=== PATIENT | male | born 1970 | race Asian ===

== ENCOUNTER 2017-03-07 16:29 | Emergency (ER) | payer OTHER ==
[~2017-03-07] VITALS: Ht 180.3 cm; Wt 81.6 kg
== END 2017-03-07 17:53 | disposition home or self-care (01) ==
LOC: ED 16:29
DX: M54.12 Radiculopathy, cervical region (principal)
CPT/HCPCS: 96372; 99283; J1100; J1885

== ENCOUNTER 2019-05-27 16:08 | Emergency (ER) | payer OTHER ==
[~2019-05-27] VITALS: Ht 177.8 cm; Wt 81.6 kg
[2019-05-27 20:45] VITALS: BP 133/85; TEMP 92.3
== END 2019-05-27 20:45 | disposition home or self-care (01) ==
LOC: ED 16:08
PROC: 0HQGXZZ Repair Left Hand Skin, External Approach (ICD-10-PCS; principal; 2019-05-27)
PROC: 2W3KX1Z Immobilization of Left Finger using Splint (ICD-10-PCS; 2019-05-27)
DX: S61.211A Laceration without foreign body of left index finger without damage to nail, initial encounter (principal); W29.8XXA Contact with other powered hand tools and household machinery, initial encounter
CPT/HCPCS: 99283; J7040